=== PATIENT | male | born 1995 | race Two or more races ===

== ENCOUNTER 2016-06-13 22:24 | Emergency (ER) | payer OTHER, MEDICAID ==
--- OUTSIDE RECORDS SUMMARY | 2016-06-13 23:56 | XMS REPORT | Continuity of Care Document ---
:1995 Author Organization [facility] ([facility]) Address [address] [place] [address] Phone [phone] Care Team Providers Name Role Phone Elvin Mercado Primary Care Provider [phone] Source Comments This disclosure is being made pursuant to the Care Everywhere program, applicable federal and state laws, and may not contain all informaitonavailable regarding this patient.[facility] ([facility]) Active Allergies and Adverse Reactions No Known Allergies Current Medications Prescription Sig. Disp. Refills Start Date End Date Status metoPROLol succinate 50 50 mg daily. 0 06/25/2015 Active mg XL tablet HYDROcodone-acetaminoph Take 1 tablet by 30 tablet 0 07/19/2015 Active en 5-325 mg per tablet mouth 2 times daily as needed. Active Problems Problem Noted Date Closed fracture of head of metacarpal 07/19/2015 Social History Tobacco Use Types Packs/Day Years Used Date Current Every Day Smoker Cigarettes 1 5 Smokeless Tobacco: Former User Chew, Snuff Quit: 11/22/2012 Tobacco Cessation:Ready to Quit: No; Counseling Given: Yes Comments: Alcohol Use Drinks/Week oz/Week Comments No Last Filed Vital Signs Vital Sign Reading Time Taken Blood Pressure 132/82 07/19/2015 11:02 AM CDT Pulse 78 07/19/2015 11:02 AM CDT Temperature - - Respiratory Rate - - Height 1.829 m (6') 07/19/2015 11:02 AM CDT Weight 72.303 kg (159 lb 6.4 oz) 07/19/2015 11:02 AM CDT Body Mass Index 21.61 07/19/2015 11:02 AM CDT Oxygen Saturation - - Plan of Care Health Maintenance Due Date Last Done Comments Hepatitis B Vaccine (1 of 3 - Primary Series) 1995 HPV Vaccine (1 of 3 - Male 3 Dose Series) 01/03/2004 Tdap Vaccine 01/03/2004 Lipid Disorder Screening 2011 MMR Vaccine 2011 Td Vaccine 2011 Varicella Vaccine (1 of 2 - Adult - No Evidence of 2011 Immunity) Pneumococcal Vaccine (1 of 1 - PPSV23) 01/03/2012 Influenza Vaccine: Seasonal (#1) 09/23/2015 Results from Last 3 Months Not on file
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
[2016-06-14 00:12] VITALS: BP 138/76
== END 2016-06-14 00:08 | disposition home or self-care (01) ==
LOC: ER 22:24
DX: S09.93XA Unspecified injury of face, initial encounter (principal); F17.210 Nicotine dependence, cigarettes, uncomplicated; Y04.2XXA Assault by strike against or bumped into by another person, initial encounter; Y93.89 Activity, other specified; Y92.199 Unspecified place in other specified residential institution as the place of occurrence of the external cause; Y99.0 Civilian activity done for income or pay